=== PATIENT | female | born 1970 | race Two or more races ===

== ENCOUNTER 2025-02-07 12:00 | Day surgery (SDC) | payer OTHER ==
[2025-01-31 09:08] VITALS: BP 109/76
[2025-01-31 10:03] LABS: BASO % 0.3 % (0.1-1.2); EOS # 0.24 (0.04-0.54); EOS % 3.9 % (0.7-7.0); LYMPH # 2.12 (1.18-3.74); LYMPH % 34.3 % (19.3-53.1); MEAN PLATELET VOLUME 11.10 fl (9.4-12.4); MONO # 0.54 (0.24-0.82); MONO % 8.7 % (4.7-12.5); NEUT # 3.24 (1.56-6.13); NEUT % 52.5 % (34.0-71.1); RED CELL DISTRIBUTION WIDTH 12.8 % (11.6-14.4)
[2025-01-31 10:16] LABS: URINE APPEARANCE Clear; URINE BILIRRUBIN Negative (NEGATIVE); URINE BLOOD Negative; URINE COLOR Yellow; URINE GLUCOSE Negative (NEGATIVE); URINE KETONE Negative (NEGATIVE); URINE LEUKOCYTE Negative; URINE NITRATE Negative; URINE PROTEIN Negative (NEGATIVE); URINE UROBILINOGEN 0.2 E.U./dl
[2025-01-31 10:22] LABS: URINE BACTERIA 788.4 uL (0.0-1933); URINE EPITHELIAL CELLS 45.8 uL (0.0-38.8); URINE RBC 11.4 uL (0.0-20.8); URINE WBC 19.0 uL (0.0-23.2)
[2025-01-31 10:35] LABS: INR 0.98
[2025-01-31 10:38] LABS: URINE CAST 0.00 uL (0.0-1.40)
[2025-01-31 10:42] LABS: ALT/SGPT 38.0 U/L (12-78); AST/SGOT 22.0 U/L (15-37); BILIRUBIN TOTAL 0.28 mg/dL (0.3-1.2); BUN CREA RATIO 30.0 (7.0-25.0); CREATININE SERUM 0.57 mg/dL (0.55-1.02); GFR 111.38; GLOBULINA 3.8 G/DL (2.4-3.5); GLUCOSE FASTING 94.0 mg/dL (65-100); OSMOLALITY SERUM 284.0 MOSM/KG (275-295)
[~2025-02-07] VITALS: Ht 160 cm; Wt 98.0 kg
[~2025-02-07 12:00] MED LIST: AVAPRO150 MG PO
[2025-02-07] MEDS ORDERED: CEFAZOLIN SODIUM 1,000 MG VIAL ONE (13:10)
== END 2025-02-07 20:08 | disposition home or self-care (01) ==
LOC: CIR.AMB 12:00
PROVIDERS: ATTEND Orthopaedic Surgery Hand Surgery
DX: M77.12 Lateral epicondylitis, left elbow (principal)